=== PATIENT | female | born 1995 | race Caucasian/White ===

== ENCOUNTER 2018-08-31 23:35 | Inpatient (IN) | payer BC ==
[2018-09-01] MEDS ORDERED: OXYTOCIN 10 UNIT/ML 1 ML VIAL IM PRN (00:19)
[2018-09-01] MEDS ORDERED: AMPICILLIN 2,000 MG in SODIUM CHLORIDE 0.9% 100 ML IVPB STA (00:19)
[2018-09-01] MEDS ORDERED: TERBUTALINE 1 MG/ML VIAL SQ PRN (00:19)
[2018-09-01] MEDS ORDERED: CARBOPROST TROMETHAMINE 250 MCG/ML 1 ML AMP IM PRN (00:19)
[2018-09-01] MEDS ORDERED: METHYLERGONOVINE 0.2 MG/ML 1 ML AMP IM PRN (00:19)
[2018-09-01] MEDS ORDERED: LIDOCAINE 0.5% (PF) 5 MG/ML (50 ML SDV) SQ PRN (00:19)
[2018-09-01] MEDS: LACTATED RINGERS 1,000 ML IV SCH ×2 (00:20→00:52)
[2018-09-01 00:29] LABS: Basophils % (A) 0 %; Eosinophils # (A) 0.1 k/uL (0-0.7); Eosinophils % (A) 1 %; HCT 36.8 % (34.0-46.0); HGB 12.7 gm/dL (11.4-16.0); Lymphocytes % (A) 16 %; MCH 31.4 pg (25.0-35.0); MCHC 34.4 g/dL (31.0-37.0); MCV 91.1 fL (80.0-100.0); Mean Platelet Volume 7.3; Monocytes # (A) 0.8 k/uL (0-1.0); Monocytes % (A) 6 %; Neutrophils % (A) 76 %; Platelet Count 315 k/uL (150-450); RBC 4.04 m/uL (3.80-5.40); RDW 13.4 % (11.5-15.5); WBC 13.1 k/uL (3.8-10.6)
--- NOTE | 2018-09-01 01:08 | P.HPOB ---
History of Present Illness H&P Date: 09/01/18 Chief Complaint: Leaking of fluid This patient is a pleasant 23-year-old 2 para 1 female estimated date of confinement 09/11/2018 estimated gestational age 38-3/7 weeks gestation who is admitted to labor and delivery with a gush of fluid at approximately 11:00 this evening. Patient's care is per Dr. De La Paz appears to be uncomplicated. She did have a positive group B strep culture. Review of Systems Gastrointestinal: Reports heartburn Genitourinary: Reports Menstruation: Reports amenorrhea Past Medical History Past Medical History: No Reported History History of Any Multi-Drug Resistant Organisms: None Reported Additional Past Surgical History / Comment(s): Bilateral eye surgery Past Anesthesia/Blood Transfusion Reactions: No Reported Reaction Past Psychological History: No Psychological Hx Reported Smoking Status: Former smoker Past Alcohol Use History: None Reported Past Drug Use History: None Reported Medications and Allergies Allergies Allergy/AdvReac Type Severity Reaction Status Date / Time No Known Allergies Allergy Verified 09/01/18 00:19 Exam Intake and Output 08/31/18 08/31/18 09/01/18 14:59 22:59 06:59 Other: Weight 74.389 kg - OBG Physical Exam Abdomen: bowel sounds normal, no diffuse tenderness, no bruit present, no guarding noted, no hepatomegaly, no splenomegaly, no mass Vulva: both: normal Vagina: normal moisture, no discharge Cervix: no lesion (Cervix is 4 cm dilated 60% effaced -2 station), no discharge Results blood work shows she is O positive, rubella immune, RPR is nonreactive , hepatitis B is negative, HIV is nonreactive, toxoplasmosis was negative, Glucola was normal, ultrasounds have been normal, group B strep was positive. Most recent ultrasound showed estimated weight of 5 lbs. 3 oz. on August 14 Result Diagrams: 09/01/18 00:22 Abnormal Lab Results - Last 24 Hours (Table) 09/01/18 Range/Units 00:22 WBC 13.1 H (3.8-10.6) k/uL Neutrophils # 10.0 H (1.3-7.7) k/uL Assessment and Plan Assessment: This is a pleasant 23-year-old 2 para 1 female 38-3/7 weeks gestation with spontaneous rupture membranes earlier this evening, positive group B strep , and early labor. Plan is antibiotic prophylaxis and augmentation of labor if necessary. Anticipate vaginal delivery (1) Spontaneous rupture of amniotic membranes Current Visit: Yes Status: Acute Code(s): WFQ2745 - SNOMED Code(s): 074287214 (2) Third trimester Current Visit: Yes Status: Acute Code(s): Z34.93 - ENCNTR FOR SUPRVSN OF NORMAL PREG, UNSP, THIRD TRIMESTER SNOMED Code(s): 02527893 (3) Group B streptococcal carriage complicating Current Visit: Yes Status: Acute Code(s): O99.820 - STREPTOCOCCUS B CARRIER STATE COMPLICATING SNOMED Code(s): 787755771271614
[2018-09-01 01:11] VITALS: BMI 29.0
[2018-09-01] MEDS ORDERED: AMPICILLIN 1,000 MG in SODIUM CHLORIDE 0.9% 50 ML IVPB SCH (04:20)
--- NOTE | 2018-09-01 05:54 | P.PROBDLV ---
Vaginal Delivery Note - . Vaginal Delivery Note: Normal vaginal delivery viable female Apgars are 9 and 9 at 0531 hours. Please see dictated H&P for intimate details of this patient's admission. Brief summary this is a pleasant 23-year-old 2 para 1 female 38-4/7 weeks gestation admitted to labor and delivery with spontaneous rupture membranes in early labor. Patient does receive an epidural for pain control. Patient's labor progresses quickly she gets to complete. With 2 pushes the patient pushes the head to the perineum and the posterior perineum was supported. We have controlled delivery of infant's head over the intact perineum. Mouth and nares are bulb suctioned. There is a loose nuchal cord which is reduced. With maternal effort we then have delivery the anterior and posterior shoulder and rest this 's body. This is a vigorous viable female infant Apgars are 9 and 9 delivery time was 0531 hours. After delivery of the the umbilical cord is doubly clamped and cut after it is done pulsating. It does appear to be trivascular. Placenta spontaneously delivered intact. I spent blood loss 100 mL. There are no lacerations and no repair. All counts correct 3. There are no complications. Infant and mother stable delivery room.
[2018-09-01] MEDS ORDERED: ZOLPIDEM 5 MG TAB PO PRN (05:56)
[2018-09-01] MEDS ORDERED: BENZOCAINE/MENTHOL SPRAY 1 GM/SPRAY AEROSOL TOPICAL PRN (05:56)
[2018-09-01] MEDS ORDERED: SIMETHICONE 80 MG CHEWABLE PO PRN (05:56)
[2018-09-01] MEDS ORDERED: LANOLIN CREAM 5 GM TUBE TOPICAL PRN (05:56)
[2018-09-01] MEDS ORDERED: BISACODYL 10 MG SUPP RECTAL PRN (05:56)
[2018-09-01] MEDS ORDERED: HYDROCORTISONE 2.5% RECTAL CREAM 30 GM TUBE RECTAL PRN (05:56)
[2018-09-01] MEDS ORDERED: diphenhydrAMINE 25 MG CAP PO PRN (05:56)
[2018-09-01] MEDS ORDERED: WITCH HAZEL 1 EACH MED..PAD TOPICAL PRN (05:56)
[2018-09-01] MEDS ORDERED: diphenhydrAMINE 50 MG/ML 1 ML VIAL IVP PRN (05:56)
[2018-09-01] MEDS ORDERED: OXYTOCIN 20 UNITS/1000 ML NS 1,000 ML IV SCH (06:00)
[2018-09-01] MEDS ORDERED: ROPIVACAINE 100 MG, fentaNYL (PF) 200 MCG in SODIUM CHLORIDE 0.9% 76 ML EPIDURAL ONE (07:03)
[2018-09-01] MEDS: SENNOSIDES-DOCUSATE SODIUM 1 EACH TAB PO SCH (08:06)
[2018-09-01] MEDS: ACETAMINOPHEN TAB 325 MG TAB PO PRN ×2 (10:14→18:17)
[2018-09-01] MEDS: IBUPROFEN 600 MG TAB PO PRN ×2 (14:23→20:29)
[2018-09-02] MEDS: ACETAMINOPHEN TAB 325 MG TAB PO PRN ×3 (00:10→19:51)
[2018-09-02] MEDS: SENNOSIDES-DOCUSATE SODIUM 1 EACH TAB PO SCH ×3 (00:25→22:38)
[2018-09-02] MEDS: IBUPROFEN 600 MG TAB PO PRN ×4 (04:25→22:37)
--- NOTE | 2018-09-02 17:40 | P.PNOBGVD ---
Subjective - Subjective Principal diagnosis: Status post normal vaginal delivery day #1 Interval history: This is seen and examined. Denies nausea, vomiting, chest pain, shortness of breath or calf pain. Patient reports: Reports appetite normal, Reports voiding normally, Reports pain well controlled, Reports ambulating normally [place]: doing well Objective - Latest Vital Signs Latest vital signs: Vital Signs Temp Pulse Resp BP 09/02/18 15:28 98.5 F 83 16 124/72 09/02/18 08:00 97.9 F 79 16 111/55 09/01/18 20:43 98.7 F 89 16 112/72 - Exam Lungs: bilateral: normal Chest: Normal S1, Normal S2 Extremities: Present: normal Abdomen: Present: normal appearance, soft Uterus: Present: normal, firm Assessment and Plan (1) Normal vaginal delivery Current Visit: Yes Status: Acute Code(s): O80 - ENCOUNTER FOR FULL-TERM UNCOMPLICATED DELIVERY SNOMED Code(s): 20959027 Plan: 1. Continue care
[2018-09-03] MEDS: ACETAMINOPHEN TAB 325 MG TAB PO PRN ×3 (03:28→17:36)
[2018-09-03] MEDS: IBUPROFEN 600 MG TAB PO PRN ×2 (08:02→14:09)
[2018-09-03] MEDS: SENNOSIDES-DOCUSATE SODIUM 1 EACH TAB PO SCH (08:02)
--- NOTE | 2018-09-03 08:49 | P.DS ---
Providers Date of admission: 09/01/18 00:03 Expected date of discharge: 09/03/18 Attending physician: Tamika De La Paz Primary care physician: Stated None - Discharge Diagnosis(es) (1) Normal vaginal delivery Current Visit: Yes Status: Acute Hospital Course: Pt presented in active labor. She underwent a normal vaginal delivery. Her pp course was uncomplicated. She will be discharged home PPD #2 in stable condition to follow up with me in 6 weeks. Plan - Discharge Summary New Discharge Prescriptions: New Ibuprofen [Motrin] 600 mg PO Q6HR PRN #30 tab PRN Reason: Mild Pain Or Fever >= 100.5 No Action Pnv No.95/Ferrous Fum/Folic AC [ Multivitamin Tablet] 1 tab PO ONCE Discharge Medication List Pnv No.95/Ferrous Fum/Folic AC [ Multivitamin Tablet] 1 tab PO ONCE [History] Ibuprofen [Motrin] 600 mg PO Q6HR PRN #30 tab 09/03/18 [Rx] Follow up Appointment(s)/Referral(s): Tamika De La Paz DO [Doctor of Osteopathic Medicine] - 6 Weeks Discharge Disposition: HOME SELF-CARE
[2018-09-03 09:57] VITALS: PULSE 82; TEMP 98.1
[2018-09-03 17:32] VITALS: BP 128/74; RESP 16
== END 2018-09-03 19:00 | disposition home or self-care (01) | DRG 807 ==
LOC: FBPOP 23:35 → 4FBP 09-01 00:03
PROVIDERS: ADMIT Obstetrics & Gynecology; ATTEND Obstetrics & Gynecology
PROC: 10E0XZZ Delivery of Products of Conception, External Approach (ICD-10-PCS; principal; 2018-09-01)
PROC: 00HU33Z Insertion of Infusion Device into Spinal Canal, Percutaneous Approach (ICD-10-PCS; 2018-09-01)
PROC: 3E0R3BZ Introduction of Anesthetic Agent into Spinal Canal, Percutaneous Approach (ICD-10-PCS; 2018-09-01)
DX: O69.81X0 Labor and delivery complicated by cord around neck, without compression, not applicable or unspecified (principal); Z37.0 Single live birth; O99.824 Streptococcus B carrier state complicating childbirth; Z3A.38 38 weeks gestation of pregnancy; Z87.891 Personal history of nicotine dependence
CPT/HCPCS: 85025; 86850; 86900; 86901

== ENCOUNTER 2019-09-04 12:24 | Emergency (ER) | payer BC, OTHER ==
[2019-09-04 12:31] VITALS: TEMP 99
[2019-09-04] MEDS ORDERED: KETOROLAC 30 MG/ML 1 ML VIAL IVP STA (12:48)
[2019-09-04] MEDS ORDERED: PANTOPRAZOLE 40 MG/10 ML VIAL IVP STA (12:48)
[2019-09-04] MEDS ORDERED: MORPHINE SULFATE 4 MG/ML SYRINGE IV STA (12:48)
[2019-09-04] MEDS ORDERED: SODIUM CHLORIDE 0.9% 1,000 ML IV STA ×2 (12:48)
--- NOTE | 2019-09-04 12:55 | ED ---
Abdominal Pain HPI - General Chief Complaint: Abdominal Pain Stated Complaint: abd pain Time Seen by Provider: 09/04/19 12:31 Source: patient, RN notes reviewed, old records reviewed Mode of arrival: wheelchair Limitations: no limitations - History of Present Illness Initial Comments: Patient is a 24-year-old female presents today for evaluation for right-sided abdominal pain. Symptoms started after intercourse last night. She can lead to some mild diarrhea and nausea. Patient states the persistent pain. She was her PCP today. They did a pelvic exam. They report some right-sided tenderness and left-sided tenderness with guarding, and sent the Patient in for evaluation for computed tomography scan. Patient denies any specific fevers or chills. She is here with her . She denies any vaginal bleeding. No history of ovarian cysts. - Related Data Home Medications Medication Instructions Recorded Confirmed Argelia Control 1 tab PO HS 09/04/19 09/04/19 Allergies Allergy/AdvReac Type Severity Reaction Status Date / Time No Known Allergies Allergy Verified 09/04/19 12:50 Review of Systems ROS Statement: Those systems with pertinent positive or pertinent negative responses have been documented in the HPI. ROS Other: All systems not noted in ROS Statement are negative. Past Medical History Past Medical History: No Reported History History of Any Multi-Drug Resistant Organisms: None Reported Additional Past Surgical History / Comment(s): Bilateral eye surgery Past Anesthesia/Blood Transfusion Reactions: No Reported Reaction Past Psychological History: No Psychological Hx Reported Smoking Status: Current every day smoker Past Alcohol Use History: None Reported Past Drug Use History: None Reported - Past Family History Mother Family Medical History: No Reported History General Exam - General Exam Comments Initial Comments: 24-year-old female. Limitations: no limitations General appearance: alert, in no apparent distress Head exam: Present: atraumatic, normocephalic, normal inspection Eye exam: Present: normal appearance, PERRL, EOMI. Absent: scleral icterus, conjunctival injection, periorbital swelling ENT exam: Present: normal exam, mucous membranes moist Neck exam: Present: normal inspection. Absent: tenderness, meningismus, lymphadenopathy Respiratory exam: Present: normal lung sounds bilaterally. Absent: respiratory distress, wheezes, rales, rhonchi, stridor Cardiovascular Exam: Present: regular rate, normal rhythm, normal heart sounds. Absent: systolic murmur, diastolic murmur, rubs, gallop, clicks GI/Abdominal exam: Present: soft, tenderness (RLQ tenderness and guarding), normal bowel sounds. Absent: distended, guarding, rebound, rigid Back exam: Present: normal inspection Course Vital Signs 09/04/19 09/04/19 09/04/19 12:29 14:11 16:00 Temperature 99.0 F Pulse Rate 102 H 74 Respiratory 16 18 18 Rate Blood Pressure 111/63 106/71 O2 Sat by Pulse 100 100 Oximetry Medical Decision Making - Medical Decision Making 24-year-old female presents today for evaluation of right lower quadrant abdominal pain. Symptoms started after intercourse. Patient has no vaginal bleeding or discharge. She had a pelvic exam done by PCP and sent her here for a computed tomography scan. Patient's labwork was reviewed. Mild leukocytosis noted 17,000. No fever at this time. She's had no vomiting. At this time patient's computed tomography scan and pelvis shows evidence of a right-sided ovarian cyst. Normal appendix. Ultrasound was completed to rule out torsion. There is evidence of 100 hemorrhagic 3 cm ovarian cyst with no torsion. Consider endometrioma. Discussed the Patient needs to follow-up with her [employer] for repeat imaging in 6 weeks. Patient advised to take Motrin Tylenol for pain relief. On reevaluation she has no further pain. I discussed return parameters. All questions were answered. - Lab Data Result diagrams: 09/04/19 12:55 09/04/19 12:55 Lab Results 09/04/19 09/04/19 09/04/19 Range/Units 12:55 12:55 12:55 WBC 17.5 H (3.8-10.6) k/uL RBC 4.64 (3.80-5.40) m/uL Hgb 14.4 (11.4-16.0) gm/dL Hct 40.7 (34.0-46.0) % MCV 87.8 (80.0-100.0) fL MCH 31.0 (25.0-35.0) pg MCHC 35.3 (31.0-37.0) g/dL RDW 12.0 (11.5-15.5) % Plt Count 286 (150-450) k/uL Neutrophils % 81 % Lymphocytes % 12 % Monocytes % 4 % Eosinophils % 2 % Basophils % 0 % Neutrophils # 14.1 H (1.3-7.7) k/uL Lymphocytes # 2.1 (1.0-4.8) k/uL Monocytes # 0.8 (0-1.0) k/uL Eosinophils # 0.4 (0-0.7) k/uL Basophils # 0.1 (0-0.2) k/uL PT (9.0-12.0) sec INR (<1.2) APTT (22.0-30.0) sec Sodium 141 (137-145) mmol/L Potassium 4.0 (3.5-5.1) mmol/L Chloride 109 H (98-107) mmol/L Carbon Dioxide 20 L (22-30) mmol/L Anion Gap 12 mmol/L BUN 15 (7-17) mg/dL Creatinine 0.82 (0.52-1.04) mg/dL Est GFR (CKD-EPI)AfAm >90 (>60 ml/min/1.73 sqM) Est GFR (CKD-EPI)NonAf >90 (>60 ml/min/1.73 sqM) Glucose 84 (74-99) mg/dL Plasma Lactic Acid [place] 0.9 (0.7-2.0) mmol/L Calcium 9.6 (8.4-10.2) mg/dL Total Bilirubin 0.9 (0.2-1.3) mg/dL AST 20 (14-36) U/L ALT 31 (9-52) U/L Alkaline Phosphatase 87 (38-126) U/L Total Protein 7.9 (6.3-8.2) g/dL Albumin 4.5 (3.5-5.0) g/dL Amylase 53 (30-110) U/L Lipase 56 (23-300) U/L Urine Color Urine Appearance (Clear) Urine pH (5.0-8.0) Ur Specific [place] (1.001-1.035) Urine Protein (Negative) Urine Glucose (UA) (Negative) Urine Ketones (Negative) Urine Blood (Negative) Urine Nitrite (Negative) Urine Bilirubin (Negative) Urine Urobilinogen (<2.0) mg/dL Ur Leukocyte Esterase (Negative) Urine HCG, Qual (Not Detectd) 09/04/19 09/04/19 09/04/19 Range/Units 12:55 12:55 12:55 WBC (3.8-10.6) k/uL RBC (3.80-5.40) m/uL Hgb (11.4-16.0) gm/dL Hct (34.0-46.0) % MCV (80.0-100.0) fL MCH (25.0-35.0) pg MCHC (31.0-37.0) g/dL RDW (11.5-15.5) % Plt Count (150-450) k/uL Neutrophils % % Lymphocytes % % Monocytes % % Eosinophils % % Basophils % % Neutrophils # (1.3-7.7) k/uL Lymphocytes # (1.0-4.8) k/uL Monocytes # (0-1.0) k/uL Eosinophils # (0-0.7) k/uL Basophils # (0-0.2) k/uL PT 9.5 (9.0-12.0) sec INR 0.9 (<1.2) APTT 26.0 (22.0-30.0) sec Sodium (137-145) mmol/L Potassium (3.5-5.1) mmol/L Chloride (98-107) mmol/L Carbon Dioxide (22-30) mmol/L Anion Gap mmol/L BUN (7-17) mg/dL Creatinine (0.52-1.04) mg/dL Est GFR (CKD-EPI)AfAm (>60 ml/min/1.73 sqM) Est GFR (CKD-EPI)NonAf (>60 ml/min/1.73 sqM) Glucose (74-99) mg/dL Plasma Lactic Acid [place] (0.7-2.0) mmol/L Calcium (8.4-10.2) mg/dL Total Bilirubin (0.2-1.3) mg/dL AST (14-36) U/L ALT (9-52) U/L Alkaline Phosphatase (38-126) U/L Total Protein (6.3-8.2) g/dL Albumin (3.5-5.0) g/dL Amylase (30-110) U/L Lipase (23-300) U/L Urine Color Light Yellow Urine Appearance Clear (Clear) Urine pH 5.0 (5.0-8.0) Ur Specific [place] 1.010 (1.001-1.035) Urine Protein Negative (Negative) Urine Glucose (UA) Negative (Negative) Urine Ketones Negative (Negative) Urine Blood Negative (Negative) Urine Nitrite Negative (Negative) Urine Bilirubin Negative (Negative) Urine Urobilinogen <2.0 (<2.0) mg/dL Ur Leukocyte Esterase Negative (Negative) Urine HCG, Qual Not Detected (Not Detectd) - Radiology Data Radiology results: report reviewed Transvaginal ultrasound shows a very similar complex mass in the right ovary recollecting a hemorrhagic cyst or endometrioma. Lesion of other etiologies are not excluded. Correlate clinically and follow up studies advised at [address] shows nonspecific right ovarian cystic lesion. Cor consider ultrasound correlation. Normal appendix. Disposition Clinical Impression: Hemorrhagic cyst of right ovary Disposition: HOME SELF-CARE Condition: Good Instructions (If sedation given, give patient instructions): Ovarian Cyst (ED) Additional Instructions: Please use medication as discussed. Please follow up with family doctor and OBGYN if symptoms have not improved over the next two days. Please return to the emergency room if your symptoms increase or worsen or for any other concerns. Is patient prescribed a controlled substance at d/c from ED?: No Referrals: Kremit Morocho MD [Primary Care Provider] - 1-2 days Time of Disposition: 16:02
[2019-09-04 13:09] LABS: Basophils # (A) 0.1 k/uL (0-0.2); Basophils % (A) 0 %; Eosinophils # (A) 0.4 k/uL (0-0.7); Eosinophils % (A) 2 %; HCT 40.7 % (34.0-46.0); HGB 14.4 gm/dL (11.4-16.0); Lymphocytes # (A) 2.1 k/uL (1.0-4.8); Lymphocytes % (A) 12 %; MCHC 35.3 g/dL (31.0-37.0); MCV 87.8 fL (80.0-100.0); Mean Platelet Volume 6.8; Monocytes # (A) 0.8 k/uL (0-1.0); Monocytes % (A) 4 %; Neutrophils # (A) 14.1 k/uL (1.3-7.7); Neutrophils % (A) 81 %; Platelet Count 286 k/uL (150-450); RBC 4.64 m/uL (3.80-5.40); WBC 17.5 k/uL (3.8-10.6)
[2019-09-04 13:16] LABS: Appearance,Urine Clear (Clear); Bilirubin,Urine Negative (Negative); Blood,Urine Negative (Negative); Color,Urine Light Yellow; Glucose,Urine (UA) Negative (Negative); Ketones,Urine Negative (Negative); Leukocyte Esterase,Urine Negative (Negative); Nitrite,Urine Negative (Negative); Protein,Urine Negative (Negative); Urobilinogen,Urine <2.0 mg/dL (<2.0)
[2019-09-04 13:20] LABS: ALT 31 U/L (9-52); AST 20 U/L (14-36); African American GFR (CKD) >90 (>60 ml/min/1.73 sqM); Albumin 4.5 g/dL (3.5-5.0); Alkaline Phosphatase 87 U/L (38-126); Amylase 53 U/L (30-110); Anion Gap 12 mmol/L; Blood Urea Nitrogen 15 mg/dL (7-17); Calcium 9.6 mg/dL (8.4-10.2); Carbon Dioxide 20 mmol/L (22-30); Chloride 109 mmol/L (98-107); Glucose 84 mg/dL (74-99); Non-African American GFR(CKD) >90 (>60 ml/min/1.73 sqM); Sodium 141 mmol/L (137-145); Total Bilirubin 0.9 mg/dL (0.2-1.3); Total Protein 7.9 g/dL (6.3-8.2)
[2019-09-04 13:25] LABS: INR 0.9 (<1.2); Prothrombin Time 9.5 sec (9.0-12.0)
--- NOTE | 2019-09-04 14:04 | CT ---
EXAMINATION TYPE: CT abdomen pelvis w con DATE OF EXAM: 09/04/2019 COMPARISON: None HISTORY: Abdominal pain CT DLP: 538.3 mGycm CONTRAST: CT scan of the abdomen and pelvis is performed without Oral Contrast and with IV Contrast, patient in jected with 100 ml mL of Isovue 300. FINDINGS: LUNG BASES-: No visible nodule. No infiltrate. LIVER/GB: No calcified gallstones. No space occupying hepatic lesion. Biliary tree is of normal ca liber. PANCREAS: No inflammation. No distinct mass. SPLEEN: No splenic enlargement. No lesion seen. ADRENALS: No nodule. No thickening. KIDNEYS/BLADDER: No hydronephrosis. No nephrolithiasis. No distinct renal mass. Urinary bladder g rossly unremarkable. BOWEL: Normal appendix. Normal bowel caliber. No inflammation. GENITAL ORGANS: Right ovarian cystic lesion measuring 2.8 cm. Correlate with ultrasound. Uterus and left ovary are unremarkable. LYMPH NODES: No greater than 1cm abdominal or pelvic lymph nodes are appreciated. AORTA: No significant abnormality. OSSEOUS STRUCTURES: No significant abnormality is seen. OTHER: No significant additional abnormality is seen. IMPRESSION: 1. Nonspecific right ovarian cystic lesion. Consider ultrasound correlation. 2. Normal appendix.
[2019-09-04 14:12] VITALS: RESP 18
--- NOTE | 2019-09-04 15:24 | US ---
EXAMINATION TYPE: US transvaginal DATE OF EXAM: 09/04/2019 COMPARISON: CT 09/04/19 CLINICAL HISTORY: Right tenderness, r/o torsion . RLQ Pain TECHNIQUE: Transvaginal (TV). Transabdominal sonographic images of the pelvis were acquired. Trans vaginal sonographic images were medically necessary to better assess the following anatomy: all Date of LMP: 08/17/19 EXAM MEASUREMENTS: Uterus: 7.6 x 4.2 x 3.5 cm Endometrial Stripe: 0.5 cm Right Ovary: 3.9 x 2.3 x 1.9 cm Left Ovary: 2.7 x 1.4 x 1.3 cm 1. Uterus: Anteverted wnl 2. Endometrium: wnl 3. Right Ovary: With follicles and solid, complex mass = 3.1 x 3.0 x 0.9 cm. free fluid noted around right ovary/mass 4. Left Ovary: with follicles. Spectral, color and waveform doppler imaging shows good arterial and venous flow within the ovaries ; there is no evidence for ovarian torsion. 5. Bilateral Adnexa: wnl 6. Posterior cul-de-sac: wnl IMPRESSION: 1. 3 cm complex mass right ovary reflect a hemorrhagic cyst or endometrioma. Lesion of other etiology is not excluded. Correlate clinically and follow-up study is advised at approximately 6 weeks.
[2019-09-04] MEDS ORDERED: traMADol 50 MG STARTER PACK 3 TAB BTL PO STA (16:08)
[2019-09-04 16:20] VITALS: BP 106/71; PULSE 74
== END 2019-09-04 16:34 | disposition home or self-care (01) ==
LOC: EC 12:24
DX: N83.201 Unspecified ovarian cyst, right side (principal); D72.829 Elevated white blood cell count, unspecified; R19.7 Diarrhea, unspecified; R11.0 Nausea; F17.200 Nicotine dependence, unspecified, uncomplicated; Z79.3 Long term (current) use of hormonal contraceptives
CPT/HCPCS: 36415; 80053; 82150; 83605; 83690; 85025; 85610; 85730; 81003; 81025; 76830; 74177; 99285; 96374; 96375 ×2; 96361 ×3; J2270; J1885; C9113; Q9967; 93975